=== PATIENT | male | born 1990 | race Caucasian/White ===

== ENCOUNTER 2019-03-22 22:42 | Emergency (ER) | payer OTHER ==
[~2019-03-22] VITALS: Ht 160 cm; Wt 56.7 kg
[2019-03-22 22:45] VITALS: BP 149/90
--- NOTE | 2019-03-22 22:48 | NUR ---
to lobby a/w bed ambulatory
--- NOTE | 2019-03-23 01:36 | NUR ---
PATIENT LEFT WITHOUT BEING SEEN BY DR. JOYNER. NO FURTHER CARE PROVIDED FOR PATIENT.
== END 2019-03-23 01:36 | disposition left against medical advice (07) ==
LOC: MED 22:42
DX: R11.10 Vomiting, unspecified (principal); Z53.21 Procedure and treatment not carried out due to patient leaving prior to being seen by health care provider

== ENCOUNTER 2019-04-08 19:00 | Emergency (ER) | payer MEDICAID, OTHER ==
[~2019-04-08] VITALS: Ht 160 cm; Wt 53.5 kg
[2019-04-08 19:09] VITALS: BP 139/99
--- NOTE | 2019-04-08 19:15 | NUR ---
PT 28 Y/O MALE BIB SELF OR C/O ALCOHOL WITHDRAWLS, TREMORS, AND N/V X 1 DAY. PT STATES HE HAS BEEN DRINKING DAILY X 2 WEEKS SINCE HIS FATHER . PT STATES HE HAS HAD 1 PINT OF VODKA DAILY FOR X 2 WEEKS. PT HAS HAD A HX WITH ALCOHOLISM "FOR A FEW YEARS." PT STATES HE HAS HX OF ANXIETY AND HAS SEEN A THERAPIST AND HAS RX BUT HAS NOT STARTED TAKING IT. PT PRESENTS AAO X4 AND TEARFUL. PT STATES HE HAS 8/10 GENERALIZED BODY ACHES. PT CURRENTLY FEELS NAUSEOUS BUT HAS NOT VOMITED FOR A FEW HOURS. PT ON [facility]. PARTNER AT BEDSIDE. BED LOCKED AND IN LOWEST POSITION. MEDHX: TOURETTES SYNDROME, ANXIETY, ALCOHOLISM ALLERGIES: NKA
--- NOTE | 2019-04-08 19:15 | NUR ---
PT AMBULATED TO BED 3 WITH STEADY GAIT.
[2019-04-08] MEDS ORDERED: DIAZEPAM 5 MG TAB PO STA (20:36)
--- NOTE | 2019-04-08 20:39 | NUR ---
DR FLORES AT BEDSIDE.
[2019-04-08] MEDS ORDERED: THIAMINE 200 MG/2 ML VIAL IM ONE (22:10)
[2019-04-08] MEDS ORDERED: NACL 0.9% 1,000 ML IV ONE (22:10)
[2019-04-08] MEDS ORDERED: DIAZEPAM 5 MG TAB PO ONE (22:30)
--- NOTE | 2019-04-08 22:48 | NUR ---
PT RESTING IN BED EYES CLOSED. RESPIRATIONS ARE EVEN AND UNALBORED. SKIN IS WARM AND DRY TO TOUCH. PT ON MONITOR. VSS. GIRLFRIEND AT BEDSIDE.
--- NOTE | 2019-04-09 00:04 | NUR ---
PT WILL GET RIDE FROM GIRLFRIEND HOME. PT HAS STEADY GAIT AND ABLE TO AMBULATE TO CAR.
[2019-04-09 00:05] VITALS: BP 110/76
--- NOTE | 2019-04-09 00:05 | NUR ---
Patient discharged with v/s stable. Written and verbal after care instructions given and explained. Patient verbalized understanding. Ambulatory with steady gait. All questions addressed prior to discharge. Advised to follow up with PMD.
== END 2019-04-09 00:05 | disposition home or self-care (01) ==
LOC: MED 19:00
DX: F41.9 Anxiety disorder, unspecified (principal); F10.129 Alcohol abuse with intoxication, unspecified; Y90.9 Presence of alcohol in blood, level not specified; M62.838 Other muscle spasm
CPT/HCPCS: 96372; 99283; J7030

== ENCOUNTER 2019-04-11 18:18 | Inpatient (IN) | payer MEDICAID ==
[~2019-04-11] VITALS: Ht 160 cm; Wt 55.8 kg
[2019-04-11 18:27] VITALS: BP 129/91
[2019-04-11] MEDS ORDERED: NACL 0.9% 1,000 ML IV ONE (18:35)
[2019-04-11] MEDS ORDERED: ONDANSETRON 4 MG/2 ML VIAL IVP ONE (18:35)
[2019-04-11] MEDS ORDERED: KETOROLAC 30 MG/ML VIAL IVP ONE (18:35)
--- NOTE | 2019-04-11 18:40 | NUR ---
28 YRS OLD M C/O N/V/GENERALIZED WEAKNESS. PER PT, DAD HAS RECENTLY AND PT HAD STARTED BINGE DRINKING FOR ABOUT 1 MONTH. LAST BINGE DRINK WAS YESTERDAY 04/10/2019. FAMILY AT BEDSIDE, BED IN LOW POSITION, SIDE RAIL UP X1. WILL CONTINUE TO MONITOR.
--- NOTE | 2019-04-11 19:00 | NUR ---
FLU SWAB COLLECTED AND SENT TO LAB
[2019-04-11 19:02] LABS: BASOPHILS # (AUTO) 0.1 K/uL (0.00-0.22); BASOPHILS % (AUTO) 2.8 % (0.0-2.0); EOSINOPHILS % (AUTO) 0.3 % (0.0-4.0); HEMATOCRIT 41.8 % (36-52); HEMOGLOBIN 14.2 g/dL (12.0-18.0); LYMPHOCYTES # (AUTO) 0.2 K/uL (2.0-11.5); LYMPHOCYTES % (AUTO) 4.1 % (20.5-51.1); MEAN CORPUSCULAR HEMOGLOBIN 30 pg (27-31); MEAN CORPUSCULAR HGB CONC 34 g/dL (33-37); MEAN CORPUSCULAR VOLUME 87.2 fL (80-94); MONOCYTES # (AUTO) 0.3 K/uL (0.8-1.0); MONOCYTES % (AUTO) 5.9 % (1.7-9.3); NEUTROPHILS # (AUTO) 4.5 K/uL (1.8-7.7); NEUTROPHILS % (AUTO) 86.9 % (42.2-75.2); PLATELET COUNT (AUTO) 161 K/uL (140-450); RED CELL DISTRIBUTION WIDTH 17.6 % (11.6-13.7); WHITE BLOOD COUNT (AUTO) 5.2 K/uL (4.8-10.8)
--- NOTE | 2019-04-11 19:16 | NUR ---
REPORT RECEIVED FROM MARQUEZ ALLEN, TRANSFER OF CARE AT THIS TIME
[2019-04-11 19:28] LABS: ALBUMIN 3.8 g/dL (3.4-5.0); ANION GAP 14.8 (8-16); CARBON DIOXIDE 29.4 mmol/L (21-32); CREATININE 0.8 mg/dL (0.6-1.3); POTASSIUM 3.2 mmol/L (3.5-5.1); TOTAL BILIRUBIN 1.9 mg/dL (0.0-1.0)
--- NOTE | 2019-04-11 19:42 | NUR ---
PATIENT ALERT AND AWAKE, BREATHING EVEN AND UNLABORED
[2019-04-11] MEDS ORDERED: THIAMINE 200 MG/2 ML VIAL IM ONE (19:55)
[2019-04-11] MEDS ORDERED: FOLIC ACID 1 MG TAB PO ONE (19:55)
[2019-04-11] MEDS ORDERED: POTASSIUM CHLORIDE 10 MEQ TABER PO ONE (19:55)
[2019-04-11 20:12] LABS: APPEARANCE,URINE CLEAR (CLEAR); BILIRUBIN,URINE 1+ (NEGATIVE); BLOOD, URINE NEGATIVE (NEGATIVE); COLOR,URINE YELLOW (YELLOW); LEUKOCYTE ESTERASE ,URINE NEGATIVE (NEGATIVE); NITRITE, URINE NEGATIVE (NEGATIVE); PH,URINE 5.5 (5.0-9.0); UGLUCOSE NEGATIVE (NEGATIVE)
[2019-04-11 20:16] LABS: BARBITURATE, URINE NEG. ng/ml (NEG <=200); BENZODIAZEPINE, URINE POS. ng/mL (NEG <=200); CANNABINOID, URINE NEG. ng/mL (NEG <=50); COCAINE, URINE POS. ng/mL (NEG <=300); OPIATE, URINE NEG. ng/mL (NEG <=2000); PHENCYCLIDINE SCREEN,URINE NEG. ng/mL (NEG <=25)
--- NOTE | 2019-04-11 20:30 | NUR ---
PATIENT ALERT AND AWAKE, BREATHING EVEN AND UNLABORED
[2019-04-11] MEDS ORDERED: MULTIVITAMIN-12 10 ML, THIAMINE 100 MG, MAGNESIUM SULFATE 50% 2,000 MG, FOLIC ACID 1 MG... IV ONE ×5 (20:40)
[2019-04-11] MEDS ORDERED: PAX10 PO (20:48)
[2019-04-11] MEDS ORDERED: ACETAMINOPHEN 325 MG TAB PO PRN (20:50)
[2019-04-11] MEDS ORDERED: ONDANSETRON 4 MG/2 ML VIAL IM/IVP PRN (20:50)
[2019-04-11] MEDS ORDERED: DOCUSATE SODIUM 100 MG GELCAP PO PRN (20:50)
[2019-04-11] MEDS ORDERED: LORazepam 1 MG TAB PO SCH (21:00)
--- NOTE | 2019-04-11 21:10 | NUR ---
Patient will be admitted to care of Dr Bella. Admited to tele. Will go to room 119B. Belongings list completed. Report to Jaleesa ALLEN.
[2019-04-11 21:30] VITALS: BP 121/80
[2019-04-11] MEDS: NACL 0.9% 1,000 ML IV SCH (21:40)
--- NOTE | 2019-04-11 21:45 | NUR ---
ATIVAN 1MG TIV GIVEN ORDERED
[2019-04-11] MEDS ORDERED: LORazepam 2 MG/ML VIAL ONE (21:47)
[2019-04-11 22:08] LABS: PROTHROMBIN TIME 10.4 secs (10.8-13.4)
[2019-04-11 22:14] LABS: FREE T4 (FREE THYROXINE) 0.78 ng/dL (0.76-1.46); MAGNESIUM 1.6 mg/dL (1.8-2.4); PHOSPHORUS 3.3 mg/dL (2.5-4.9); THYROID STIMULATING HORMONE 1.85 uIU/mL (0.34-3.74)
[2019-04-11] MEDS ORDERED: MAG SULF 2000 MG/WATER PREMIX 100 ML IV ONE (23:25)
--- NOTE | 2019-04-11 23:30 | NUR ---
Elva jaime in [facility] - 04/12/19 at 0437 by MEDJJ PATIENT ALERT AND AWAKE, BREATHING EVEN AND UNLABORED
[2019-04-12] VITALS: BP 130/80
[2019-04-12] MEDS: LORazepam 2 MG/ML VIAL IVP SCH ×4 (00:13→23:55)
--- NOTE | 2019-04-12 00:23 | NUR ---
C/O ABDL. PAIN - REFER TO DEBI - WILL VISIT AND ASSESS THE PT DEBI SAID - WAITING FOR FURTHER ORDER.
--- NOTE | 2019-04-12 03:25 | NUR ---
2ND BAG OF MAGNESIUM SO4 2 GRMS GIVEN ORDERED -W/ SERIAL# [id number] . CHARGE NURSE WITNESSED.
[2019-04-12 04:00] VITALS: BP 130/80
--- NOTE | 2019-04-12 04:00 | NUR ---
MAD ROUNDS , NO COMPLAIN MADE.
--- NOTE | 2019-04-12 07:22 | NUR ---
ENDORSED TO AM SHIFT - PT -STABLE - FOR US ABD.- NPO
--- NOTE | 2019-04-12 07:30 | NUR ---
RECEIVED PT FROM NIGHT NURSE IN STABLE CONDITION. PT IN BED AWAKE, NO DISTRESS NOTED, DENIES PAIN AT THIS TIME. RESPIRATIONS EVEN AND UNLABORED ON ROOM AIR. IV IN PLACE R HAND 22G PATENT AND ASYMPTOMATIC INFUSING PER ORDER. SKIN INTACT. PT AMBULATORY. SAFETY MEASURES IN PLACE, CALL LIGHT WITHIN REACH. BED IN LOW POSITION. WILL CONTINUE TO MONITOR.
[2019-04-12 07:32] LABS: BASOPHILS % (AUTO) 1.3 % (0.0-2.0); EOSINOPHILS # (AUTO) 0.2 K/uL (0-0.4); HEMATOCRIT 39.6 % (36-52); HEMOGLOBIN 13.7 g/dL (12.0-18.0); LYMPHOCYTES # (AUTO) 0.5 K/uL (2.0-11.5); LYMPHOCYTES % (AUTO) 12.3 % (20.5-51.1); MEAN CORPUSCULAR HEMOGLOBIN 30 pg (27-31); MEAN CORPUSCULAR HGB CONC 35 g/dL (33-37); MEAN CORPUSCULAR VOLUME 86.5 fL (80-94); MONOCYTES # (AUTO) 0.3 K/uL (0.8-1.0); MONOCYTES % (AUTO) 8.3 % (1.7-9.3); NEUTROPHILS # (AUTO) 2.7 K/uL (1.8-7.7); NEUTROPHILS % (AUTO) 73.1 % (42.2-75.2); PLATELET COUNT (AUTO) 140 K/uL (140-450); RED BLOOD CELL COUNT(AUTO) 4.58 MIL/uL (4.20-6.10); RED CELL DISTRIBUTION WIDTH 16.9 % (11.6-13.7); WHITE BLOOD COUNT (AUTO) 3.7 K/uL (4.8-10.8)
[2019-04-12 08:00] VITALS: BP 131/86
--- NOTE | 2019-04-12 08:49 | NUR ---
MEDICATIONS ADMINISTERED PER ORDER. PT TOLERATED WELL. NO DISTRESS NOTED. SAFETY MEASURES IN PLACE, CALL LIGHT WITHIN REACH, WILL CONTINUE TO MONITOR.
[2019-04-12] MEDS ORDERED: MULTIVITAMIN 1 TAB PO SCH (09:00)
[2019-04-12] MEDS ORDERED: PARoxetine 10 MG TAB PO SCH (09:00)
[2019-04-12] MEDS ORDERED: THIAMINE 100 MG TAB PO SCH (09:00)
[2019-04-12] MEDS ORDERED: CYANOCOBALAMIN 100 MCG TAB PO SCH (09:00)
[2019-04-12] MEDS ORDERED: FOLIC ACID 1 MG TAB PO SCH (09:00)
--- NOTE | 2019-04-12 09:02 | NUR ---
PATIENT HAS BEEN SCREENED AND CATEGORIZED LOW NUTRITION RISK. PATIENT WILL BE SEEN WITHIN 7 DAYS OF ADMISSION. 04/18/[address]
[2019-04-12 09:28] LABS: ANION GAP 15.1 (8-16); CARBON DIOXIDE 25.5 mmol/L (21-32); CREATININE 0.7 mg/dL (0.6-1.3); POTASSIUM 3.6 mmol/L (3.5-5.1)
[2019-04-12] MEDS ORDERED: LORazepam 2 MG/ML VIAL IM/IVP PRN (09:55)
[2019-04-12] MEDS: NACL 0.9% 1,000 ML IV SCH ×2 (10:51→19:39)
--- NOTE | 2019-04-12 11:12 | NUR ---
PT IN BED ASLEEP, NO DISTRESS NOTED, RESPIRATIONS EVEN AND UNLABORED ON ROOM AIR. SAFETY MEASURES IN PLACE, CALL LIGHT WITHIN REACH. WILL CONTINUE TO MONITOR.
[2019-04-12 12:00] VITALS: BP 144/92
--- NOTE | 2019-04-12 12:17 | NUR ---
DC PLANNIN YRS OLD MALE PATIENT WAS ADMITTED FROM HOME WITH A DX OF ALCOHOL WITHDRAWAL PT HAS A HX OF ANXIETY, PANIC ATTACKS AND TOURETTE'S SYNDROME. UDS (+) FOR COCAINE , US OF ABDOMEN SHOWED HYPERECHOIC LIVER WHICH MAY INDICATE FATTY INFILTRATION OR CIRRHOSIS. ADMINISTERED BANANA BAG, SEIZURE PRECAUTION ,ADMINISTERED ATIVAN TO CONTROL THE ANXIETY. SOCIAL SERVICE EVALUATION FOR REHABS. DC PLAN TO GO HOME WHEN STABLE CM TO FOLLOW.
[2019-04-12] MEDS ORDERED: chlordiazePOXIDE 25 MG CAP PO SCH (13:00)
--- NOTE | 2019-04-12 13:25 | NUR ---
MEDICATION ADMINISTERED PER ORDER. PT IS AWAKE AND ALERT WITH NO PAIN. FAMILY MEMBER AT THE BEDSIDE. SAFETY MEASURES IN PLACE AND WILL CONTINUE TO MONITOR.
--- NOTE | 2019-04-12 15:49 | NUR ---
PT IN BED, AWAKE, NO DISTRESS NOTED. FAMILY MEMBER AT THE BEDSIDE. SAFETY MEASURES IN PLACE, CALL LIGHT WITHIN REACH. WILL CONTINUE TO MONITOR.
[2019-04-12 16:00] VITALS: BP 119/82
--- NOTE | 2019-04-12 18:40 | NUR ---
MEDICATION ADMINISTERED PER ORDER. PT IS ALERT, AWAKE, AND EATING IN BED. FAMILY IS AT THE BEDSIDE AND NO COMPLAINTS OF ANY PAIN. SAFETY MEASURES IN PLACE AND WILL CONTINUE TO MONITOR PT.
--- NOTE | 2019-04-12 19:15 | NUR ---
PT ENDORSED TO HEALTH AND SAFETY TRAINER FOR CONTINUITY OF CARE.
--- NOTE | 2019-04-12 19:20 | NUR ---
RECEIVED BEDSIDE REPORT FROM AM SHIFT NURSE. PATIENT IS LYING IN BED, AWAKE AND ALERT. FAMILY MEMBER AT BEDSIDE. NO SOB OR DISTRESS NOTED. ON ROOM AIR. PATIENT NOTED WITH RIGHT FOREARM 2 GAUGE, PATENT AND INTACT. NOTED WITH CLOSED WOUND ON RIGHT COUCH. BED IN LOW, SAFETY MEASURES IN PLACE. INITIAL ASSESSMENT DONE. CALL LIGHT PLACED WITHIN PATIENT REACH. WILL CONTINUE TO MONITOR PATIENT. Addendum: 04/12/19 at 1938 by Latasha Durán RN EDIT- NOTED WITH RIGHT FOREARM 22 GAUGE. SKIN IS INTACT. PATIENT IS AMBULATORY.
[2019-04-12 20:30] VITALS: BP 130/70
--- NOTE | 2019-04-12 22:52 | NUR ---
ROUNDS DONE. VISIBLE CHEST RISE AND FALL NOTED. CALL LIGHT WITHIN PATIENT REACH. WILL CONTINUE TO MONITOR PATIENT.
[2019-04-13 00:40] VITALS: BP 144/96
--- NOTE | 2019-04-13 00:40 | NUR ---
VITALS TAKEN AT THIS TIME. NO SOB OR DISTRESS NOTED. CALL LIGHT WITHIN PATIENT REACH. WILL CONTINUE TO MONITOR PATIENT.
--- NOTE | 2019-04-13 02:08 | NUR ---
ROUNDS DONE. VISIBLE CHEST RISE AND FALL NOTED. CALL LIGHT WITHIN PATIENT REACH. WILL CONTINUE TO MONITOR PATIENT.
[2019-04-13] MEDS: NACL 0.9% 1,000 ML IV SCH (03:46)
[2019-04-13 04:30] VITALS: BP 138/96
[2019-04-13] MEDS: LORazepam 2 MG/ML VIAL IVP SCH (05:46)
--- NOTE | 2019-04-13 06:24 | NUR ---
PATIENT IN STABLE CONDITION. CALL LIGHT WITHIN PATIENT REACH. WILL ENDORSE TO AM SHIFT NURSE FOR CONTINUITY OF CARE.
[2019-04-13 06:31] LABS: ANION GAP 14.1 (8-16); CARBON DIOXIDE 25.5 mmol/L (21-32); CREATININE 0.7 mg/dL (0.6-1.3); POTASSIUM 3.6 mmol/L (3.5-5.1)
[2019-04-13 06:50] LABS: ALBUMIN 3.2 g/dL (3.4-5.0); BILIRUBIN,DIRECT 0.2 mg/dL (0.0-0.3); MAGNESIUM 2.1 mg/dL (1.8-2.4); PHOSPHORUS 2.2 mg/dL (2.5-4.9); TOTAL BILIRUBIN 0.8 mg/dL (0.0-1.0)
[2019-04-13 06:54] LABS: BASOPHILS % (AUTO) 1.1 % (0.0-2.0); EOSINOPHILS # (AUTO) 0.3 K/uL (0-0.4); EOSINOPHILS % (AUTO) 6.7 % (0.0-4.0); HEMATOCRIT 38.8 % (36-52); HEMOGLOBIN 13.3 g/dL (12.0-18.0); LYMPHOCYTES # (AUTO) 0.5 K/uL (2.0-11.5); LYMPHOCYTES % (AUTO) 12.9 % (20.5-51.1); MEAN CORPUSCULAR HEMOGLOBIN 30 pg (27-31); MEAN CORPUSCULAR HGB CONC 34 g/dL (33-37); MEAN CORPUSCULAR VOLUME 86.9 fL (80-94); MONOCYTES # (AUTO) 0.4 K/uL (0.8-1.0); MONOCYTES % (AUTO) 10.6 % (1.7-9.3); NEUTROPHILS # (AUTO) 2.9 K/uL (1.8-7.7); NEUTROPHILS % (AUTO) 68.7 % (42.2-75.2); PLATELET COUNT (AUTO) 143 K/uL (140-450); RED BLOOD CELL COUNT(AUTO) 4.46 MIL/uL (4.20-6.10); WHITE BLOOD COUNT (AUTO) 4.2 K/uL (4.8-10.8)
[2019-04-13 07:16] LABS: HEPATITIS B CORE AB TOTAL Negative (Negative); HEPATITIS B SURFACE ANTIBODY Reactive (.); HEPATITIS B SURFACE ANTIGEN Negative (Negative)
--- NOTE | 2019-04-13 07:20 | NUR ---
RECEIVED REPORT FROM MANAGER OB NURSE. PATIENT SITTING DOWN IN BED. NO DISTRESS NOTED. DENIES ANY PAIN. AAOX4, CALM, COOPERATIVE, SKIN COLOR APPROPRIATE TO ETHNICITY, WARM TO TOUCH. SKIN INTACT. PATIENT ALREADY DRESSED AND WANTS TO GO HOME. RESPIRATIONS EVEN, UNLABORED, ON ROOM AIR. IV SITE INTACT, PATENT, AND INFUSING IVF PER MD ORDERS. REVIEWED PLAN OF CARE WITH PATIENT. PATIENT VERBALIZED UNDERSTANDING. SAFETY MEASURES IN PLACE, CALL LIGHT WITHIN REACH. WILL CONTINUE TO MONITOR.
[2019-04-13 08:00] VITALS: BP 147/90
[2019-04-13 08:55] LABS: HEPATITIS A ANTIBODY IGM NEGATIVE (NEGATIVE)
--- NOTE | 2019-04-13 09:00 | NUR ---
PATIENT SAYS HIS UBER IS HERE AND DOES NOT WANT TO WAIT FOR MD TO COMPLETE DISCHARGE ORDERS HE HAS TO GO TO WORK AT 1030 AND PICKUP HIS DAUGHTER FROM DAY CARE AT [address] DANITA MD EXPLAINED RISKS OF LEAVING AMA TO PATIENT. PATIENT STILL WISHES TO LEAVE AMA AT THIS TIME. IV SITE REMOVED WITH MINIMAL BLOOD AND LUMEN COMPLETELY INTACT. ID BANDS REMOVED. PATIENT LEFT AMA AT THIS TIME IN STABLE CONDITION.
[2019-04-13] MEDS ORDERED: FOLI1TAB90 PO (09:10)
[2019-04-13] MEDS ORDERED: THIA-34 PO (09:10)
[2019-04-13] MEDS ORDERED: SODIUM PHOS / POTASSIUM PHOS 1 PKT PDR PO SCH (09:30)
[2019-04-13] MEDS ORDERED: chlordiazePOXIDE 25 MG CAP PO SCH (13:00)
== END 2019-04-13 09:00 | disposition left against medical advice (07) | DRG 280 ==
LOC: MED 18:18 → MTU 20:36
PROVIDERS: ADMIT General Practice; ATTEND General Practice
DX: K70.9 Alcoholic liver disease, unspecified (principal); K70.0 Alcoholic fatty liver; G92 Toxic encephalopathy; F95.2 Tourette's disorder; R65.10 Systemic inflammatory response syndrome (SIRS) of non-infectious origin without acute organ dysfunction; E87.6 Hypokalemia; F41.9 Anxiety disorder, unspecified; F14.10 Cocaine abuse, uncomplicated; F13.10 Sedative, hypnotic or anxiolytic abuse, uncomplicated; Z53.29 Procedure and treatment not carried out because of patient's decision for other reasons; Z91.14 Patient's other noncompliance with medication regimen
CPT/HCPCS: 36415; 71045; 76705; 80048; 80053; 80076; 80305; 81003; 82150; 83036; 83690; 83735; 83880; 84100; 84134; 84439; 84443; 84484; 85025; 85610; 85730; 86704; 86706; 86708; 86709; 86803; 87081; 87340; 87804; 96374; 96375; 99285; A9153; G0482; J1885; J2060; J2405; J3411; J3475; J3490; J7030; Q0092

== ENCOUNTER 2019-04-20 21:31 | Emergency (ER) | payer MEDICAID ==
[~2019-04-20] VITALS: Ht 160 cm; Wt 54.4 kg
[~2019-04-20 21:31] MED LIST: FOLI1TAB90 PO; PAX10 PO; THIA-34 PO
[2019-04-20 21:45] VITALS: BP 144/100
--- NOTE | 2019-04-20 21:48 | NUR ---
TO LOBBY A/W BED AMBULATORY
--- NOTE | 2019-04-20 22:04 | NUR ---
PT TAKEN TO BED 1
--- NOTE | 2019-04-20 22:34 | NUR ---
28 YO MALE CO ALCOHOL WITHDRAWL SINCE TODAY. PT STATES THAT HE HAS NOT HAD A DRINK SINE 1800. STATES THAT HE NORMALLY DRINKS ALL DAY FOR SEVERAL MONTHS. HAS NOT EATEN IN 2 DA[address] SZ PRECAUTIONS IN PLACE.
[2019-04-20] MEDS ORDERED: NACL 0.9% 1,000 ML IV ONE (23:10)
[2019-04-20] MEDS ORDERED: LORazepam 2 MG/ML VIAL IVP ONE (23:10)
[2019-04-20] MEDS ORDERED: ONDANSETRON 4 MG/2 ML VIAL IVP ONE (23:55)
[2019-04-21 00:45] VITALS: BP 144/100
--- NOTE | 2019-04-21 00:45 | NUR ---
Patient discharged with v/s stable. Written and verbal after care instructions given and explained. Patient alert, oriented and verbalized understanding of instructions. Ambulatory with steady gait. All questions addressed prior to discharge. ID band removed. Patient advised to follow up with PMD. Rx of ZOFRAN AND ATIVAN given. Patient educated on indication of medication including possible reaction and side effects. Opportunity to ask questions provided and answered.
== END 2019-04-21 00:45 | disposition home or self-care (01) ==
LOC: MED 21:31
DX: F10.239 Alcohol dependence with withdrawal, unspecified (principal); R11.10 Vomiting, unspecified; F41.9 Anxiety disorder, unspecified; Z79.899 Other long term (current) drug therapy
CPT/HCPCS: 96361; 96374; 96375; 99283; J2060; J2405; J7030

== ENCOUNTER 2019-04-22 17:45 | Emergency (ER) | payer MEDICAID | END 2019-04-22 17:54 | disposition left against medical advice (07) | LOC: MED 17:45 | DX: R05 Cough (principal); Z53.21 Procedure and treatment not carried out due to patient leaving prior to being seen by health care provider ==

== ENCOUNTER 2022-07-08 20:42 | Emergency (ER) | payer MEDICAID, OTHER ==
[~2022-07-08] VITALS: Ht 167.6 cm; Wt 63.5 kg
[2022-07-08 20:42] VITALS: BP 125/85
--- NOTE | 2022-07-08 20:42 | NUR ---
PT BROUGHT TO BED 11 VIA PRANAV LEDESMA
--- NOTE | 2022-07-08 20:45 | NUR ---
ADRY FROM HOME C/O SEIZURE/ETOH WITHDRAWAL. PER EMS, PT NOT SEEN BY FAMILY SINCE THURSDAY AND WENT ON A 4 DAY DRIKING BINGE. MEDHX- ETOH ABUSE, ANXIETY
[2022-07-08] MEDS ORDERED: NACL 0.9% 1,000 ML IV ONE ×2 (21:00→23:30)
--- NOTE | 2022-07-08 21:30 | NUR ---
pt is non alert at this moment.
--- NOTE | 2022-07-08 21:30 | NUR ---
acc check at 153.
[2022-07-08 21:33] LABS: BASOPHILS # (AUTO) 0.1 K/uL (0.00-0.22); BASOPHILS % (AUTO) 1.1 % (0.0-2.0); HEMATOCRIT 53.7 % (36-52); HEMOGLOBIN 17.2 g/dL (12.0-18.0); LYMPHOCYTES # (AUTO) 0.5 K/uL (2.0-11.5); LYMPHOCYTES % (AUTO) 8.3 % (20.5-51.1); MEAN CORPUSCULAR HEMOGLOBIN 23 pg (27-31); MEAN CORPUSCULAR HGB CONC 32 g/dL (33-37); MEAN CORPUSCULAR VOLUME 72.6 fL (80-94); MONOCYTES # (AUTO) 0.1 K/uL (0.8-1.0); MONOCYTES % (AUTO) 2.6 % (1.7-9.3); PLATELET COUNT (AUTO) 581 K/uL (140-450); RED BLOOD CELL COUNT(AUTO) 7.41 MIL/uL (4.20-6.10); RED CELL DISTRIBUTION WIDTH 20.4 % (11.6-13.7); WHITE BLOOD COUNT (AUTO) 5.7 K/uL (4.8-10.8)
[2022-07-08 21:52] LABS: ALBUMIN 4.8 g/dL (3.4-5.0); ANION GAP 29.5 (8-16); CARBON DIOXIDE 19.6 mmol/L (21-32); CREATININE 1.1 mg/dL (0.6-1.3); MAGNESIUM 2.4 mg/dL (1.8-2.4); POTASSIUM 4.1 mmol/L (3.5-5.1); TOTAL BILIRUBIN 0.2 mg/dL (0.0-1.0)
--- NOTE | 2022-07-08 22:08 | NUR ---
pt is awake and asking for some fluids. notified.
[2022-07-08] MEDS ORDERED: LORazepam 2 MG/ML VIAL IVP ONE (22:10)
--- NOTE | 2022-07-08 22:15 | NUR ---
Pt is agitated. Md notified.
--- NOTE | 2022-07-08 22:55 | NUR ---
pt went restroom and urine is collected and sent to the lab
--- NOTE | 2022-07-08 22:59 | NUR ---
walked urine to lab
[2022-07-08 23:16] LABS: BARBITURATE, URINE NEGATIVE ng/ml (NEG <=200)
[2022-07-08 23:17] LABS: BENZODIAZEPINE, URINE POSITIVE ng/mL (NEG <=200); CANNABINOID, URINE NEGATIVE ng/mL (NEG <=50); COCAINE, URINE NEGATIVE ng/mL (NEG <=300); OPIATE, URINE NEGATIVE ng/mL (NEG <=2000); PHENCYCLIDINE SCREEN,URINE NEGATIVE ng/mL (NEG <=25)
[2022-07-09] MEDS: ZIPRASIDONE MESYLATE 20 MG/ML VIAL IM ONE ×2 (00:10→02:17)
--- NOTE | 2022-07-09 01:00 | NUR ---
pt complaining that he is halucinating.
[2022-07-09] MEDS ORDERED: WATER STERILE 10 ML MC ONE (02:11)
[2022-07-09 05:45] VITALS: BP 139/72
--- NOTE | 2022-07-09 06:05 | NUR ---
Patient discharged with v/s stable. Written and verbal after care instructions given and explained. Patient verbalized understanding. Ambulatory with steady gait. All questions addressed prior to discharge. Advised to follow up with PMD. PT LEFT WITH BELONGINGS
== END 2022-07-09 05:45 | disposition home or self-care (01) ==
LOC: MED 20:42
DX: F10.129 Alcohol abuse with intoxication, unspecified (principal); F41.9 Anxiety disorder, unspecified; R56.9 Unspecified convulsions; Z79.899 Other long term (current) drug therapy
CPT/HCPCS: 36415; 80053; 80305; 83690; 83735; 84100; 85025; 96361; 96372; 96374; 99285; G0482; J2060; J3486; J7030

== ENCOUNTER 2022-07-10 00:15 | Emergency (ER) | payer OTHER ==
[~2022-07-10] VITALS: Ht 157.5 cm; Wt 63.5 kg
--- NOTE | 2022-07-10 00:17 | NUR ---
PT ADRY ALS. TAKEN TO BED 9
[2022-07-10 00:25] VITALS: BP 137/92
[2022-07-10] MEDS ORDERED: levETIRAcetam 1,000 MG in NACL 0.9% 100 ML IV ONE (00:25)
[2022-07-10] MEDS ORDERED: levETIRAcetam 100 MG/ML VIAL IV ONE (00:33)
--- NOTE | 2022-07-10 00:34 | NUR ---
Patient had seizure one episode, Dr. Boyce notified and verbal order Ativan 1 mg IM stat.
[2022-07-10] MEDS ORDERED: LORazepam 2 MG/ML VIAL ONE (00:42)
[2022-07-10 00:49] LABS: BASOPHILS % (AUTO) 0.9 % (0.0-2.0); EOSINOPHILS % (AUTO) 0.4 % (0.0-4.0); HEMATOCRIT 40.7 % (36-52); LYMPHOCYTES # (AUTO) 1.1 K/uL (2.0-11.5); LYMPHOCYTES % (AUTO) 28.4 % (20.5-51.1); MEAN CORPUSCULAR HEMOGLOBIN 23 pg (27-31); MEAN CORPUSCULAR HGB CONC 32 g/dL (33-37); MONOCYTES # (AUTO) 0.2 K/uL (0.8-1.0); NEUTROPHILS # (AUTO) 2.6 K/uL (1.8-7.7); NEUTROPHILS % (AUTO) 64.3 % (42.2-75.2); PLATELET COUNT (AUTO) 376 K/uL (140-450); RED BLOOD CELL COUNT(AUTO) 5.73 MIL/uL (4.20-6.10); RED CELL DISTRIBUTION WIDTH 20.1 % (11.6-13.7)
[2022-07-10] MEDS ORDERED: LORazepam 2 MG/ML VIAL IM ONE (00:55)
--- NOTE | 2022-07-10 00:57 | NUR ---
Dr. Boyce examining patient.
[2022-07-10] MEDS ORDERED: NACL 0.9% 1,000 ML IV ONE (01:00)
--- NOTE | 2022-07-10 01:10 | NUR ---
Patient states " Ativan didn't help, I am not feeling well.", Dr. Boyce notified.
--- NOTE | 2022-07-10 01:10 | NUR ---
Elva jaime in ED - 07/10/22 at 0330 by ALTON Patient states " Ativan didn't help, I am not feeling well.", Dr. Boyce notified.
[2022-07-10 01:11] LABS: ANION GAP 17.2 (8-16); CARBON DIOXIDE 28.4 mmol/L (21-32); CREATININE 0.7 mg/dL (0.6-1.3); POTASSIUM 3.6 mmol/L (3.5-5.1); TOTAL BILIRUBIN 0.2 mg/dL (0.0-1.0)
[2022-07-10] MEDS ORDERED: OLANZapine 10 MG VIAL IM ONE (01:15)
[2022-07-10] MEDS ORDERED: WATER STERILE 10 ML MC ONE (01:23)
--- NOTE | 2022-07-10 02:01 | NUR ---
Patient appears to be resting comfortably in bed. Respirations even and unlabored.
--- NOTE | 2022-07-10 03:28 | NUR ---
Patient appears to be resting comfortably in bed. Respirations even and unlabored.
--- NOTE | 2022-07-10 03:28 | NUR ---
Elva jaime in ED - 07/10/22 at 0330 by ALTON Patient appears to be resting comfortably in bed. Respirations even and unlabored.
--- NOTE | 2022-07-10 05:58 | NUR ---
Patient appears to be resting comfortably in bed. Respirations even and unlabored.
--- NOTE | 2022-07-10 06:22 | NUR ---
Patient woke up but unable to maintain steady gait.
--- NOTE | 2022-07-10 07:45 | NUR ---
ASSUMED PATIENT CARE, CONCUR TO PREVIOUS NURSING ASSESSMENTS. PATIENT REMAINS SOMNOLENT, VS WNL. UPDATED PATIENT'S MOTHER, SARITHA OF PATIENT STATUS.
[2022-07-10 12:45] VITALS: BP 106/66
== END 2022-07-10 12:44 | disposition home or self-care (01) ==
LOC: MED 00:15
DX: F10.129 Alcohol abuse with intoxication, unspecified (principal); R45.1 Restlessness and agitation; R56.9 Unspecified convulsions; Z79.899 Other long term (current) drug therapy; Y90.9 Presence of alcohol in blood, level not specified
CPT/HCPCS: 36415; 80053; 85025; 96361; 96365; 96372; 99291; G0482; J1953; J2060; J3490; J7030

== ENCOUNTER 2023-01-23 18:00 | Emergency (ER) | payer OTHER ==
[~2023-01-23] VITALS: Ht 162.6 cm; Wt 59.0 kg
[2023-01-23 18:14] VITALS: BP 134/90; PULSE 114; RESP 22; TEMP 98.3; O2SAT 95
[2023-01-24] MEDS ORDERED: ATORVASTATIN 20 MG TAB ONE (08:45)
[2023-01-24] MEDS ORDERED: ASPIRIN 81 MG TAB.CHEW ONE (08:45)
[2023-01-24] MEDS ORDERED: CLOPIDOGREL 75 MG TAB ONE (08:45)
== END 2023-01-23 18:10 | disposition left against medical advice (07) ==
LOC: MED 18:00
DX: F10.239 Alcohol dependence with withdrawal, unspecified (principal); Z53.21 Procedure and treatment not carried out due to patient leaving prior to being seen by health care provider; Y90.9 Presence of alcohol in blood, level not specified
CPT/HCPCS: 99281